=== PATIENT | female | born 1950 | race Caucasian/White ===

== ENCOUNTER 2020-08-15 16:23 | Emergency (ER) | payer MEDICARE ==
[~2020-08-15] VITALS: Ht 160 cm; Wt 66.7 kg
[2020-08-15] MEDS ORDERED: ATOR40TA PO (16:47)
[2020-08-15] MEDS ORDERED: METO50ER PO (16:48)
[2020-08-15] MEDS ORDERED: CHLO25B PO (16:48)
[2020-08-15] MEDS ORDERED: ELIQUIS5 MG PO (16:48)
[2020-08-15] MEDS ORDERED: LEVSOD75 PO (16:48)
[2020-08-15] MEDS ORDERED: TRAM50 PO (16:49)
[2020-08-15] MEDS ORDERED: ALPR.5 PO (16:49)
[2020-08-15] MEDS ORDERED: EPIPEN0.3 MG/0.3 IM (16:49)
[2020-08-15] MEDS ORDERED: ALBU90OI INH (16:50)
[2020-08-15] MEDS ORDERED: ONDA4ODT MM (17:31)
== END 2020-08-15 18:07 | disposition home or self-care (01) ==
LOC: ER 16:23
DX: R04.0 Epistaxis (principal); Z88.0 Allergy status to penicillin; Z88.2 Allergy status to sulfonamides; Z79.899 Other long term (current) drug therapy
CPT/HCPCS: 30901; 96374-59; 99284-25; A9270; J2405